=== PATIENT | male | born 1995 | race Two or more races ===

== ENCOUNTER → 2021-10-15 | Emergency (ER) | payer SELFPAY ==
[~2021-10-15] VITALS: Ht 182.9 cm; Wt 77.7 kg
[~2021-10-15] MED LIST: LEVO-28 PO; LORazepam 0.5 MG TAB PO ONE
[2021-10-15 20:57] VITALS: BP 119/79
== END | disposition home or self-care (01) ==
LOC: ER 18:55
DX: J40 Bronchitis, not specified as acute or chronic (principal); F41.9 Anxiety disorder, unspecified
CPT/HCPCS: 71045

== ENCOUNTER 2025-01-22 04:51 | Emergency (ER) | payer SELFPAY ==
[~2025-01-22] VITALS: Ht 172.7 cm; Wt 81.0 kg
[~2025-01-22 04:51] MED LIST changes: -LEVO-28 PO; +LEVO500T91 PO; -LORazepam 0.5 MG TAB PO ONE
[2025-01-22] MEDS: SODIUM CHLORIDE 0.9% 1,000 ML IV ONE ×2 (05:45→06:31)
[2025-01-22 06:13] LABS: Base Excess -2.3 mmol/L (-2.0-3.0)
[2025-01-22] MEDS ORDERED: ALBUTEROL SULF 2.5 MG/0.5ML(0.5%) NEB SOLN NEB ONE (06:30)
[2025-01-22] MEDS: methylPREDNISolone SOD SUCC 125 MG/2 ML VL IV ONE (06:31)
[2025-01-22] MEDS: LORazepam 2MG/ML-1ML VIAL IV ONE (06:31)
[2025-01-22 06:36] VITALS: PULSE 114; RESP 44; O2SAT 99
--- NOTE | 2025-01-22 06:38 | DVH ---
CHEST RADIOGRAPH Indication: Shortness of breath Technique: Single frontal view of the chest was obtained COMPARISON: CHEST PORTABLE on DOS: 10/15/21, CXRP on DOS: 10/15/21 FINDINGS: Lines and Tubes: None Lungs: Clear Pleura: No effusion. No pneumothorax. Cardiomediastinal contours: Unremarkable Bones: Unremarkable IMPRESSION: 1. No acute disease.
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
[2025-01-22 06:54] LABS: Chloride 104 mmol/L (98-107); Potassium 3.7 mmol/L (3.5-5.1); Sodium 141 mmol/L (136-145)
[2025-01-22 06:55] LABS: Anion Gap 15 (5-15); Carbon Dioxide 22 mmol/L (20-31)
[2025-01-22 06:57] LABS: Hematocrit 46.1 % (41.0-53.0); Hemoglobin 15.6 g/dL (13.5-17.5); Mean Corpuscular Hemoglobin 28.6 pg (28.0-32.0); Mean Corpuscular Volume 84.5 fL (80.0-100.0)
[2025-01-22 07:00] LABS: BUN/Creatinine Ratio 12.5 (10.0-20.0); Blood Urea Nitrogen 16 mg/dL (9-23); Glucose 103 mg/dL (74-106)
[2025-01-22 07:01] LABS: Calcium 8.6 mg/dL (8.7-10.4)
--- NOTE | 2025-01-22 07:19 | ECG ---
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
[2025-01-22 07:51] LABS: Total Cells Counted 100.0 (100)
[2025-01-22 08:00] VITALS: PULSE 100; RESP 30; O2SAT 99
[2025-01-22] MEDS: MIDAZOLAM HCL 5 MG/ML-1ML VIAL IV ONE (08:01)
[2025-01-22 08:30] LABS: Acetaminophen < 2.0 UG/ML (10.0-20.0); Salicylate < 3.0 mg/dL (-30)
[2025-01-22 11:04] LABS: Urine Amorphous Crystal FEW /hpf (None Seen); Urine Protein, UAD 1+ (Negative)
[2025-01-22 11:10] LABS: Amphetamine Screen, Urine Pos (NEGATIVE); Barbiturate Scree,Urine Neg (NEGATIVE); Opiate Scree,Urine Neg (NEGATIVE); Phencyclidine Screen, Urine Neg (NEGATIVE)
[2025-01-22 11:11] LABS: Benzodiazephine Screen, Urine Pos (NEGATIVE); Cannabinoid Screen, Urine Neg (NEGATIVE); Cocaine Screen, Urine Neg (NEGATIVE)
[2025-01-22 12:00] VITALS: BP 144/87
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
[2025-01-22 14:00] VITALS: PULSE 89; RESP 20; TEMP 98.9; O2SAT 98
--- NOTE | 2025-01-23 10:29 | ECG ---
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
--- NOTE | 2025-01-23 10:29 | ECG ---
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
== END 2025-01-22 15:00 ==
LOC: ER 04:51
DX: R06.02 Shortness of breath (principal); F19.10 Other psychoactive substance abuse, uncomplicated; R79.89 Other specified abnormal findings of blood chemistry; Z77.098 Contact with and (suspected) exposure to other hazardous, chiefly nonmedicinal, chemicals; Z79.899 Other long term (current) drug therapy
CPT/HCPCS: 36415; 36600; 71045; 80048; 80307; 80320; 80329; 81001; 82805; 84484; 85007; 85027; 93005; 96361; 96374; 96375; 99285; J2060; J2250; J2919; J7030